=== PATIENT | female | born 1985 | race Caucasian/White ===

== ENCOUNTER 2020-08-28 15:28 | Outpatient (REF) | payer OTHER, SELFPAY ==
[2020-08-29 11:06] LABS: BV Int Neg Control Negative (Negative); BV Int Pos Control Positive (Positive)
[2020-09-02 16:43] LABS: HPV mRNA E6/E7 rflx Not Detected (Not Detected)
[2020-09-25 22:14] LABS: CT PCR NOT DETECTED (Not Detect.); NG PCR NOT DETECTED (Not Detect.)
== END 2020-08-28 15:29 | disposition home or self-care (01) ==
LOC: HO.LAB 15:28
PROVIDERS: Visit Provider Obstetrics & Gynecology
DX: Z01.419 Encounter for gynecological examination (general) (routine) without abnormal findings (principal)
CPT/HCPCS: 87480; 87491; 87510; 87591; 87624; 87625; 87660; 88141; 88142

== ENCOUNTER 2020-09-17 15:34 | Outpatient (REF) | payer OTHER, SELFPAY ==
--- NOTE | 2020-09-17 15:38 | US_ITS ---
EXAMINATION: US pelvic complete, US transvaginal CLINICAL INFORMATION: Pelvic and perineal pain. COMPARISON: Several prior pelvic ultrasounds. Most recent of 03/05/20. TECHNIQUE: Transabdominal and transvaginal imaging was performed. FINDINGS: Uterus: The uterus is anteverted and normal in size and appearance measuring 7.2 x 3.4 x 3.9 cm. Central endometrial complex measures 1.0 cm. Small nabothian cysts are present in the cervix. Right ovary: Normal size and appearance with normal follicles. The ovary measures 2.2 x 1.2 x 1.4 cm with a volume of 2 mL. Left ovary: There is a simple cyst measuring 2.0 cm in diameter which is different than the complex cyst seen on prior imaging. There are other small cysts which have a somewhat tubular configuration suggesting the possibility of mild hydrosalpinx. The left ovary measures 4.4 x 2.6 x 2.3 cm with a volume of 14 mL. There is no free fluid. US/US transvaginal IMPRESSION: 1. 2.0 cm simple cyst left ovary. Other small cystic collections suggesting mild hydrosalpinx. 2. Normal right ovary and uterus.
--- NOTE | 2020-09-17 15:38 | US_ITS ---
EXAMINATION: US pelvic complete, US transvaginal CLINICAL INFORMATION: Pelvic and perineal pain. COMPARISON: Several prior pelvic ultrasounds. Most recent of 03/05/20. TECHNIQUE: Transabdominal and transvaginal imaging was performed. FINDINGS: Uterus: The uterus is anteverted and normal in size and appearance measuring 7.2 x 3.4 x 3.9 cm. Central endometrial complex measures 1.0 cm. Small nabothian cysts are present in the cervix. Right ovary: Normal size and appearance with normal follicles. The ovary measures 2.2 x 1.2 x 1.4 cm with a volume of 2 mL. Left ovary: There is a simple cyst measuring 2.0 cm in diameter which is different than the complex cyst seen on prior imaging. There are other small cysts which have a somewhat tubular configuration suggesting the possibility of mild hydrosalpinx. The left ovary measures 4.4 x 2.6 x 2.3 cm with a volume of 14 mL. There is no free fluid. US/US pelvic complete IMPRESSION: 1. 2.0 cm simple cyst left ovary. Other small cystic collections suggesting mild hydrosalpinx. 2. Normal right ovary and uterus.
== END 2020-09-17 15:35 | disposition home or self-care (01) ==
LOC: HO.US 15:34
PROVIDERS: Visit Provider Obstetrics & Gynecology
DX: R10.2 Pelvic and perineal pain (principal)
CPT/HCPCS: 76830; 76856

== ENCOUNTER 2021-01-01 10:29 | Outpatient (REF) | payer OTHER, SELFPAY ==
[2021-01-06 18:32] LABS: HPV mRNA E6/E7 rflx Not Detected (Not Detected)
== END 2021-01-01 10:30 | disposition home or self-care (01) ==
LOC: HO.LAB 10:29
PROVIDERS: Visit Provider Obstetrics & Gynecology
DX: Z12.4 Encounter for screening for malignant neoplasm of cervix (principal); Z11.51 Encounter for screening for human papillomavirus (HPV); R87.615 Unsatisfactory cytologic smear of cervix
CPT/HCPCS: 87624; 88141; 88142; 99212

== ENCOUNTER 2024-01-17 13:35 | Outpatient (AMB) | payer OTHER, SELFPAY ==
--- NOTE | 2024-01-17 13:47 | MHC.PC.OV ---
Vital Signs 01/17/24 13:48 Height 5 ft 6 in Weight 209 lb 0.2 oz BMI 33.7 BP 140/86 H Blood Pressure Location Lt brachial Position Sitting Pulse 102 H Pulse Source Pulse Oximeter Pulse Oximetry (%) 97 Oxygen Delivery Method Room Air Intake Visit Reasons: Annual PE Intake Note: Patient is here today for a physical. 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: No Allergies hazelnut Allergy (Severe, Verified 01/17/24 14:52) SWELLING watermelon Allergy (Intermediate, Verified 01/17/24 14:52) itchy throat, hoarseness FRUIT, SKINS Allergy (Intermediate, Uncoded 01/17/24 14:52) ITCHY THROAT salsa dip Adverse Reaction (Severe, Uncoded 01/17/24 14:52) mouth swelling Medication List - Last Reconciled 01/17/24 by Bhavik Le MD fexofenadine 180 mg PO DAILY PRN 90 days fluticasone propionate 50 mcg/actuation 1 spray intranasal DAILY 90 days gabapentin 300 mg PO TID 30 days tizanidine 4 mg PO TID PRN 30 days Tobacco use date assessed: 01/17/24 Dental Screening Dental Screen Date: 01/17/24 Did you have a dental visit in the last 12 months?: No Did you have a dental problem in the last 6 months where you did not have access to dental care?: No Was dental information given to patient?: Patient has dentist HPI Annual PE HPI Details Patient comes in today for her annual physical examination States that she continues to experience increased pain over her lower back and feels that her low back pain has been getting worse lately States that her current medications are not helping much She has also been experiencing increased pain over her left shoulder, left hip and left knee lately She denies any recent injury or trauma to her left side She denies any headaches or dizziness Denies any chest pains, no shortness of breath No nausea / vomiting, no abdominal pain No change in bowel habits noted She denies any acute urinary symptoms She will also need to have her annual mammogram and annual histology aide exam and pap smear updated [facility] Medical History Allergic rhinitis Anxiety Depression Elevated LFTs Lumbar degenerative disc disease Obesity (BMI 30-39.9) Paresthesia Primary insomnia Pure hypercholesterolemia Surgical History History of arthroscopy of left shoulder History of ectopic Family History Father No problems noted. Mother No problems noted. Maternal Grandmother Stroke Diabetes Hypertension Paternal Aunt Liver problem Alcoholism Family/Other Substance use disorder Social History Housing: Apartment Alcohol intake: never Patient Tobacco Use Status: Former Tobacco user Tobacco use type: Cigarette e-Cigarette/Vaping Use: Never Used Second Hand Smoke Exposure: No service: No Current occupational status: unemployed Current occupational exposures/hazards: No Sexual orientation: Straight/Heterosexual Gender identity: Female Cognitive needs: No Hearing needs: No Vision needs: No Female Reproductive History Menstrual Age of Menarche: 9 Questionnaire PHQ-9 Over the last 2 weeks, how often have you been bothered by any of the following problems? 1. Little interest or pleasure in doing things: several days 2. Feeling down, depressed, or hopeless: several days (bodily pain ) 3. Trouble falling or staying asleep, or sleeping too much: several days 4. Feeling tired or having little energy: nearly every day (due to bodily pain ) 5. Poor appetite or overeating: several days 6. Feeling bad about yourself - or that you are a failure or have let yourself or your family down: several days 7. Trouble concentrating on things, such as reading the newspaper or watching television: several days 8. Moving or speaking so slowly that other people could have noticed. Or the opposite - being so fidgety or restless that you have been moving around a lot more than usual: several days 9. Thoughts that you would be better off or of hurting yourself in some way: not at all Total score: 10 Depression Screening Interpretation: Positive Depression Screening Follow-up: Existing condition and Declines treatment Depression Screening Done: Yes 72288 - PHQ-9 Billing: Yes Source: Developed by Drs. Serafin Garcia, Lary Francois, Babak Stevens and colleagues, with an educational radha from [employer]. Thrive Questionnaire Date Thrive assessed: 01/17/24 I am a: Patient What is your living situation today?: I have a steady place to live Within the past 12 months, did the food you bought not last and you didn't have the money to get more?: Never true Within the past 12 months, did you worry whether your food would run out before you got money to buy more?: Never true Do you have trouble paying for medicines?: No Do you have trouble getting transportation to medical appointments?: No Do you have trouble paying your heating and electricity bill?: No Do you have trouble taking care of your child, family member or friend?: No Do you have trouble with day-to-day activities such as bathing, preparing meals, shopping, managing finances, etc.?: No Are you currently unemployed and looking for a job?: No Are you interested in more education?: No Please select the resources that you would like help with: None Currently or been in a relationship where the following occur: no concerns reported THRIVE Score: 0 AUDIT C Alcohol Use Questionnaire (AUDIT-C) 1. How often do you have a drink containing alcohol?: Monthly or less 2. How many drinks containing alcohol do you have on a typical day when you are drinking?: 1 or 2 3. How often do you have six or more drinks on one occasion?: Never Total Score: 1 Score Reviewed/Action Taken: Yes VIKKI-7 AMB Questionnaire VIKKI-7 Date VIKKI - 7 assessed: 01/17/24 Feeling nervous, anxious, or on edge: 1 = Several days Not being able to stop or control worryin = Several days Worrying too much about different things: 1 = Several days Trouble relaxin = Several days Being so restless that it is hard to sit still: 1 = Several days Becoming easily annoyed or irritable: 1 = Several days Feeling afraid as if something awful might happen: 0 = Not at all Total VIKKI-7 score (0-4 normal; 5-9 mild; 10-14 moderate; 15-21 severe): 6 Source: Developed by Drs. Serafin Garcia, Lary Francois, Babak Stevens and colleagues, with an educational radha from [employer]. VIKKI-7 Assessment Billing VIKKI-7 Assessment Tool: VIKKI-7 Assessment 36385 Review of Systems Const Denies chills, Denies fatigue, Denies fever(s), Denies headache(s) and Denies malaise Eyes Denies blurry vision, Denies change in vision, Denies irritation and Denies itchy eyes ENT Denies dysphagia, Denies dizziness, Denies otalgia, Denies headache(s), Denies nasal congestion, Denies neck pain, Denies odynophagia, Denies sinus pain and Denies sore throat Card Denies chest pain, Denies rapid heart rate, Denies irregular heart rhythm, Denies palpitations and Denies dyspnea Resp Denies chest congestion, Denies cough, Denies dyspnea and Denies wheezing GI Denies abdominal pain, Denies bloating, Denies constipation, Denies dysphagia, Denies heartburn, Denies diarrhea, Denies nausea, Denies odynophagia and Denies vomiting Denies hematuria, Denies urinary frequency, Denies dysuria, Denies urinary incontinence and Denies urinary urgency Musc Reports back pain (over her lower back - chronic, but pain is increasing lately), Reports arthralgias (involving the left shoulder, left hip and left knee), Denies joint swelling, Denies muscle weakness and Denies neck pain Skin/Breast Denies breast pain, Denies breast mass, Denies change in pigmentation, Denies lesions, Denies rash and Denies unusual bruising Neuro Denies dizziness, Denies headache(s) and Denies paresthesias Psych Denies anxiety and Denies depression Endo Denies fatigue and Denies palpitations Nakul/Lymph Denies easy bruising Aller/Immun Denies itchy eyes and Denies wheezing Physical exam (Primary Care) Vital Signs: Last Vital Signs Pulse 102 H 01/17/24 13:48 BP 140/86 H 01/17/24 13:48 Pulse Ox 97 01/17/24 13:48 Oxygen Delivery Method Room Air 01/17/24 13:48 BMI result Body Mass Index 33.7 Tobacco/Smoking Status: Tobacco use Status Tobacco use date assessed 01/17/24 01/17/24 13:49 Patient Tobacco Use Status Former Tobacco user 01/17/24 13:49 Tobacco use type Cigarette 01/17/24 13:49 e-Cigarette/Vaping Use Never Used 01/17/24 13:49 PHQ-9: PHQ-9 Score PHQ-9: Total score 10 01/17/24 14:38 Depression Screening Interpretation: Positive Depression Screening Follow-up: Existing condition and Declines treatment Thrive Assessment: Date of Thrive Assessment Date Thrive assessed 01/17/24 01/17/24 13:49 Currently or been in a relationship where the following occur: no concerns reported Const General: no acute distress, alert and awake Orientation/consciousness: patient oriented x3 [facility] Head: Yes normocephalic and Yes atraumatic Ears: external ears normal, TM's normal bilaterally and EAC's normal General nose exam: No nasal discharge present Face and sinus: Yes normal facial exam and Yes sinuses nontender Teeth and gingiva: dentition normal Throat: Yes posterior oropharynx normal and Yes tonsils normal (no TP congestion) Eyes Eyelids: Yes eyelids normal Conjunctivae: conjunctivae normal Pupils: Equal, round and reactive pupils present EOM: EOMs intact bilaterally Neck Neck: Yes no lymphadenopathy and Yes supple Thyroid: Thyroid normal Resp Auscultation: clear to auscultation bilaterally, no rales and no wheezes Cardio Rate: regular rate Rhythm: regular rhythm Heart sounds: no murmurs GI Palpation (GI): Soft to palpation, nontender and No hepatosplenomegaly present Auscultation: normal bowel sounds General: Yes no CVA tenderness Back/Spine/Pelvis Back: no CVA tenderness Thoracic/Lumbar Spine: lumbar spinal tenderness Skin Lesions: no lesions Rashes: no rashes Neuro General: patient oriented x3, moves all extremities, no focal motor deficits and CN's II-XI intact bilaterally Cranial nerves: Yes Equal, round and reactive pupils present Cognition (Neuro): normal cognition Gait exam (Neuro): Normal gait present Extrem General: Yes no clubbing, cyanosis or edema Left upper extremity: shoulder/upper arm Details: tenderness Location: of the A-C joint Left lower extremity: hip/thigh Details: tenderness Location: of the hip and knee Details: tenderness Location: of the pre-patellar area and of the infrapatellar area; no swelling Assessment and Plan Assessment & Plan (1) Annual physical exam: Code(s): Z00.00 - Encounter for general adult medical examination without abnormal findings Plan: Check labs She will need to have her annual mammogram and annual gynecologic exam and Pap smear updated (2) Lumbar degenerative disc disease: Code(s): M51.36 - Other intervertebral disc degeneration, lumbar region Plan: Reinforced activity and weight lifting restrictions Lumbar spine MRI done back on 07/13/2016 revealed (+) left foraminal disc protrusion contacting the exiting left L3 nerve root at L3 to L4 and (+) right foraminal disc protrusion contacting the exiting right nerve root at L4 to L5. There is also a central to left subarticular disc extrusion at L5-S1 She was going to pain management in the past but patient has not been back to see them in a while Will refer her back to pain management, especially with her recent increasing low back pain Will try sending her for repeat MRI of the lumbar spine for further evaluation of her recent worsening of her back symptoms Continue Tizanidine 4 mg TID PRN and will try increasing her Gabapentin 300 mg to TID dosing (3) Left lumbosacral radiculopathy: Code(s): M54.17 - Radiculopathy, lumbosacral region Plan: Will try to get her to repeat an MRI of the lumbar spine for further evaluation (4) Left shoulder pain: Code(s): M25.512 - Pain in left shoulder Qualifiers: Chronicity: unspecified Qualified Code(s): M25.512 - Pain in left shoulder Plan: Will send her for x-rays of the right shoulder for further evaluation Per request, will also refer her to physical therapy for her shoulder pain Will also refer her to Orthopedics for further evaluation and management of her left shoulder pain as well as her left hip and left knee pain (5) Left hip pain: Code(s): M25.552 - Pain in left hip Plan: Will send her for x-rays of the left hip for further evaluation (6) Left knee pain: Code(s): M25.562 - Pain in left knee Qualifiers: Chronicity: unspecified Qualified Code(s): M25.562 - Pain in left knee Plan: Will also send her for left knee x-rays for further evaluation (7) Pure hypercholesterolemia: Code(s): E78.00 - Pure hypercholesterolemia, unspecified Plan: Reinforced low cholesterol diet Will recheck her fasting lipids and labs ASHELY for follow up (8) Elevated LFTs: Code(s): R79.89 - Other specified abnormal findings of blood chemistry Plan: Most likely due tp hepatosteatosis (fatty liver) and should improve with diet and weight loss Will recheck her LFTs for follow up (9) Allergic rhinitis: Code(s): J30.9 - Allergic rhinitis, unspecified Qualifiers: Allergic rhinitis trigger: unspecified Allergic rhinitis seasonality: unspecified Qualified Code(s): J30.9 - Allergic rhinitis, unspecified Plan: Continue Fexofenadine 180 mg QD PRN and Fluticasone 50 mcg nasal spray QD PRN (10) Primary insomnia: Code(s): F51.01 - Primary insomnia Plan: Sleep hygiene reinforced Continue Hydroxyzine 25 mg Q HS PRN (11) Anxiety: Code(s): F41.9 - Anxiety disorder, unspecified Plan: She was previously on Buspirone 15 mg BID and Sertraline 50 mg QD but unclear at this time if she is still on any maintenance medication for her mood disorder as she has not been back since August 2022 Follow up with psychiatry as scheduled (12) Depression: Code(s): F32.9 - Major depressive disorder, single episode, unspecified Qualifiers: Depression Type: major depressive disorder Major depression recurrence: recurrent Active/Remission status: currently active Major depression episode severity: unspecified Qualified Code(s): F33.9 - Major depressive disorder, recurrent, unspecified Plan: Follow up with psychiatry as scheduled - patient goes to [facility] (13) Obesity (BMI 30-39.9): Code(s): E66.9 - Obesity, unspecified Plan: Reinforced doet/exercise as tolerated/lose weight (14) Breast cancer screening by mammogram: Code(s): Z12.31 - Encounter for screening mammogram for malignant neoplasm of breast Plan: Will send her for her annual mammogram - she has not had it done in a few years (15) Cervical cancer screening: Code(s): Z12.4 - Encounter for screening for malignant neoplasm of cervix Plan: Patient states that she has also not been to see gynecology in a few years Will refer her to Gynecology for her annual pap smear and gynecology exam Plan Follow up in 3 months Orders: Orders MM tomosynthesis screening BI 01/17/24 Z12.31 - Encounter for screening mammogram for malignant neoplasm of breast XR hip LT min 2V 01/17/24 M25.552 - Pain in left hip Complete Blood Count Auto Diff 01/17/24 D64.9 - Anemia, unspecified, Z00.00 - Encounter for general adult medical examination without abnormal findings Comprehensive Dra[place]. Panel Fast 01/17/24 E78.00 - Pure hypercholesterolemia, unspecified, Z00.00 - Encounter for general adult medical examination without abnormal findings Lipid Panel 01/17/24 E78.00 - Pure hypercholesterolemia, unspecified, Z00.00 - Encounter for general adult medical examination without abnormal findings TSH reflex Free T4 01/17/24 E78.00 - Pure hypercholesterolemia, unspecified, Z00.00 - Encounter for general adult medical examination without abnormal findings UA CC w/rflx Micro + Cult 01/17/24 R30.0 - Dysuria, Z00.00 - Encounter for general adult medical examination without abnormal findings Hemoglobin A1c 01/17/24 Z00.00 - Encounter for general adult medical examination without abnormal findings, R73.9 - Hyperglycemia, unspecified XR shoulder LT min 2V 01/17/24 M25.512 - Pain in left shoulder XR knee LT 4V 01/17/24 M25.562 - Pain in left knee Vitamin D 25-OH Total 01/17/24 E55.9 - Vitamin D deficiency, unspecified, Z00.00 - Encounter for general adult medical examination without abnormal findings MR lumbar spine wo con 01/17/24 M54.17 - Radiculopathy, lumbosacral region Referrals Physical Medicine and Rehabilitation Referral M25.512 - Pain in left shoulder CHILD NURSE Referral Z12.4 - Encounter for screening for malignant neoplasm of cervix Orthopedics Referral M25.512 - Pain in left shoulder Pain Management Referral M51.36 - Other intervertebral disc degeneration, lumbar region Medications: Changed From tizanidine 4 mg PO TID 90 days PRN 270 tabs 3RF low back pain M51.36 - Other intervertebral disc degeneration, lumbar region To tizanidine 4 mg PO TID PRN 90 tabs 3RF low back pain 30 days M51.36 - Other intervertebral disc degeneration, lumbar region From gabapentin 300 mg PO BID 30 days 60 caps 2RF To gabapentin 300 mg PO TID 90 caps 2RF 30 days Coding Level of Care Code Est Pt Prev Care 40-64y(18618) Diagnoses Annual physical exam Z00.00 Lumbar degenerative disc disease M51.36 Left lumbosacral radiculopathy M54.17 Left shoulder pain, unspecified chronicity M25.512 Chronicity: unspecified Left hip pain M25.552 Left knee pain, unspecified chronicity M25.562 Chronicity: unspecified Pure hypercholesterolemia E78.00 Elevated LFTs R79.89 Allergic rhinitis, unspecified seasonality, unspecified trigger J30.9 Allergic rhinitis trigger: unspecified Allergic rhinitis seasonality: unspecified Primary insomnia F51.01 Anxiety F41.9 Episode of recurrent major depressive disorder, unspecified depression episode severity F33.9 Depression Type: major depressive disorder Major depression recurrence: recurrent Active/Remission status: currently active Major depression episode severity: unspecified Obesity (BMI 30-39.9) E66.9 Breast cancer screening by mammogram Z12.31 Cervical cancer screening Z12.4 Additional Codes VIKKI-7 Assessment Billing - VIKKI-7 Assessment Tool: VIKKI-7 Assessment [id number] ([id number])
[2024-01-17 13:48] VITALS: BP 140/86; PULSE 102; O2SAT 97; BMI 33.7
== END 2024-01-17 14:51 | disposition home or self-care (01) ==
PROVIDERS: PCP Internal Medicine; Visit Provider Internal Medicine
DX: Z00.00 Encounter for general adult medical examination without abnormal findings (principal); M51.36 Other intervertebral disc degeneration, lumbar region; M54.17 Radiculopathy, lumbosacral region; F33.9 Major depressive disorder, recurrent, unspecified; M25.512 Pain in left shoulder; M25.552 Pain in left hip; M25.562 Pain in left knee; E78.00 Pure hypercholesterolemia, unspecified; R79.89 Other specified abnormal findings of blood chemistry; J30.9 Allergic rhinitis, unspecified; F51.01 Primary insomnia; F41.9 Anxiety disorder, unspecified
CPT/HCPCS: 99396

== ENCOUNTER 2024-04-05 13:43 | Outpatient (REF) | payer OTHER, SELFPAY ==
--- NOTE | ~2024-04-05 | MM_ITS ---
EXAMINATION: MM SCREENING DIGITAL BREAST TOMOSYNTHESIS, BILATERAL CLINICAL INFORMATION: Screening. Asymptomatic. COMPARISON: Mammography: This a baseline mammogram. TECHNIQUE: Digital breast tomosynthesis is performed in both the craniocaudal and mediolateral oblique views along with computer-aided detection (CAD). Synthesized 2D images are generated from the tomosynthesis. FINDINGS: There are scattered areas of fibroglandular density (ACR BI-RADS breast composition Category b). There are no significant masses, abnormal calcifications, or other abnormalities. MM/MM tomosynthesis screening BI IMPRESSION: No mammographic evidence of malignancy. ASSESSMENT: BI-RADS BI-RADS 1 - Negative RECOMMENDATION: Routine annual mammography screening. 1 year F/U This examination should not preclude the clinical evaluation of a suspicious palpable abnormality. This patient's information was entered into a reminder system with a target due date for their next mammogram.
== END 2024-04-05 13:44 | disposition home or self-care (01) ==
LOC: HO.MAMMO 13:43
PROVIDERS: PCP Internal Medicine; Visit Provider Internal Medicine
DX: Z12.31 Encounter for screening mammogram for malignant neoplasm of breast (principal)
CPT/HCPCS: 77063; 77067

== ENCOUNTER → 2024-04-05 14:15 | Outpatient (BNV) | payer OTHER, SELFPAY | PROVIDERS: PCP Internal Medicine; Visit Provider Radiology Diagnostic Radiology | DX: Z12.31 Encounter for screening mammogram for malignant neoplasm of breast (principal) | CPT/HCPCS: 77063; 77067 ==

== ENCOUNTER → 2024-05-27 08:31 | Outpatient (BNV) | payer OTHER, SELFPAY | PROVIDERS: PCP Internal Medicine; Visit Provider Radiology Diagnostic Radiology | DX: M54.17 Radiculopathy, lumbosacral region (principal) | CPT/HCPCS: 72148 ==

== ENCOUNTER 2024-05-27 08:35 | Outpatient (REF) | payer OTHER, SELFPAY ==
--- NOTE | ~2024-05-27 | MR_ITS ---
EXAMINATION: MR LUMBAR SPINE WITHOUT CONTRAST CLINICAL INFORMATION: Low back pain radiating to left leg with tingling and burning in left foot. COMPARISON: MR lumbar spine 06/14/2019. TECHNIQUE: Multiplanar multisequence MR imaging of the lumbar spine was done without IV contrast. Examination performed on a 1.5 Kellen Siemens magnet, utilizing standard sequences. Please note, due to [facility] contractual, systems, and staffing issues, an [facility] radiologist was not available for review and dictation of this case until 06/14/2024. FINDINGS: CORONAL ALIGNMENT: -Normal. SAGITTAL ALIGNMENT: -Mild straightening of the normal lordosis. -There is a 2 mm degenerative appearing retrolisthesis of L5 on S1. -Alignment is otherwise anatomic. LUMBOSACRAL JUNCTION: -Normal. There are 5 uan-pod-tjvupzl lumbar-type vertebral bodies. VERTEBRAL BODIES/BONE MARROW: -No compression deformities. No gross bone marrow edema or abnormal infiltrating bone marrow signal. DISCS: -Moderate loss of height and signal at T12-L1. -Mild loss of signal at L3-4 and L4-5. -Moderate loss of height and signal at L5-S1. SPINAL CANAL: -No abnormal developmental findings. CONUS MEDULLARIS: -Terminates at L1. Morphology and signal is normal. INTRADURAL NERVE ROOTS: -No abnormal clumping or nerve root mass. Normal distribution within the thecal sac. Axial Disc Space Images: T12-L1: Only seen on axial T1 and sagittal sequences. There is a small shallow central disc extrusion with superior migration to the lower one third of T12 ventral epidural space. This indents mildly upon the thecal sac but does not contact the conus or result in significant central canal narrowing. No significant subarticular recess are neural foraminal narrowing. No significant change. L1-L2: No disc pathology. There are mild hypertrophic degenerative facet changes bilaterally. No significant central canal or neural foraminal narrowing. No change. L2-L3: No disc pathology. Jeso-zr-wpxcvrza hypertrophic degenerative facet changes bilaterally. No significant central canal or neural foraminal narrowing. No change. L3-L4: Minimal shallow concentric disc bulge present extending into both foraminal zones. There is a superimposed stable shallow left foraminal disc extrusion with mild inferior migration (series 6, image 11). Moderate hypertrophic degenerative facet changes bilaterally with mild posterior ligamentous thickening/infolding. Combination of findings resulting in mild central canal narrowing, mild bilateral subarticular recess narrowing, and mild bilateral neural foraminal narrowing left greater than right. Minimal contact of the exiting left L3 nerve root without displacement or impingement. No change. L4-L5: There is a shallow diffuse concentric disc bulge with superimposed bilateral right greater than left foraminal disc extrusion, with the right demonstrating annular fissuring. There are moderate hypertrophic degenerative facet changes bilaterally, with mild posterior ligamentous thickening/infolding. Examination of findings is resulting in mild central canal stenosis, mild bilateral subarticular recess narrowing, and mild to moderate right greater than left neural foraminal narrowing. There is contact but no mass effect upon the exiting right L4 nerve root. No change. L5-S1: There is a broad-based extrusion of disc material, increased in size from the prior study. There is associated annular fissuring. This extends into the bilateral foraminal zones right greater than left. Moderate hypertrophic degenerative facet changes are present bilaterally, with posterior ligamentous thickening/infolding. Combination of findings is resulting in mild central canal stenosis, moderate left and mild right subarticular recess narrowing, with contact and mild posterior deviation of the traversing left S1 root. There is contact but no deviation of the traversing right S1 root. There is mild to moderate bilateral neural foraminal narrowing right greater than left, with bilateral contact and mild posterior deviation of both exiting L5 nerve roots. Findings have worsened within the left lateral recess and neural foramen bilaterally. IMAGED SI JOINTS: Mild degenerative arthritis bilaterally. PARAVERTEBRAL AND INCLUDED EXTRASPINAL SOFT TISSUES: Aorta is normal in caliber. Imaged kidneys appear normal. No retroperitoneal adenopathy. Paraspinous and paravertebral musculature is normal. MR/MR lumbar spine wo con IMPRESSION: -Mqoh-dy-eqtrzpel lumbar spondylosis, most significant at L5-S1, where there has been mild worsening of findings as described. -There are unchanged findings at L3-4 and L4-5. Refer to the body of the report for details. Electronically signed by: Grzegorz Jaime MD 06/14/2024 08:40 AM EDT
== END 2024-05-27 08:36 | disposition home or self-care (01) ==
LOC: HO.MRI 08:35
PROVIDERS: PCP Internal Medicine; Visit Provider Internal Medicine
DX: M54.17 Radiculopathy, lumbosacral region (principal)
CPT/HCPCS: 72148

== ENCOUNTER 2024-05-31 13:19 | Outpatient (REF) | payer OTHER, SELFPAY ==
[2024-06-04 04:37] LABS: CT PCR NOT DETECTED (Not Detect.); NG PCR NOT DETECTED (Not Detect.)
[2024-06-04 11:25] LABS: Bacterial Vaginosis PCR NEGATIVE (Negative); Candida Group PCR NOT DETECTED (Not Detect); Candida glab krusei PCR NOT DETECTED (Not Detect); Trichomonas vaginalis PCR NOT DETECTED (Not Detect)
[2024-06-06 09:19] LABS: HPV mRNA E6/E7 Not Detected (Not Detected)
== END 2024-05-31 13:20 | disposition home or self-care (01) ==
LOC: HO.LNP 13:19
PROVIDERS: PCP Internal Medicine; Visit Provider Advanced Practice Midwife
DX: Z01.419 Encounter for gynecological examination (general) (routine) without abnormal findings (principal); N89.8 Other specified noninflammatory disorders of vagina; Z20.2 Contact with and (suspected) exposure to infections with a predominantly sexual mode of transmission
CPT/HCPCS: 0352U; 87491; 87591; 87624; 88175

== ENCOUNTER 2024-05-31 13:19 | Outpatient (AMB) | payer OTHER, SELFPAY ==
--- NOTE | 2024-05-31 13:21 | MHC.OFFVIS ---
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 Doing well with no concerns. Shared her experience with infertility, has no plans to move forward at this time with IVF. She tries to eat healthy and stays active with exercise. Regular monthly menses. Currently is sexually active, with residential partner. She denies vaginal itching and irritation. Has an occasional fishy odor after intimacy. STI screening offered; she accepts. Denies family history of breast, ovarian or colon cancer. Last pap smear 2020 ASCUS, 2005 colpo-CINI. Mammogram: 2023. [facility] Medical History History of infertility Paresthesia Allergic rhinitis Obesity (BMI 30-39.9) Depression Primary insomnia Anxiety Elevated LFTs Pure hypercholesterolemia Lumbar degenerative disc disease Surgical History History of arthroscopy of left shoulder History of ectopic Family History Father No problems noted. Mother No problems noted. Maternal Grandmother Stroke Diabetes Hypertension Paternal Aunt Liver problem Alcoholism Family/Other Substance use disorder Social History Housing: Apartment Alcohol intake: current Alcohol intake frequency: holidays/special occasions only Patient Tobacco Use Status: Former Tobacco user Tobacco use type: Cigarette e-Cigarette/Vaping Use: Never Used Second Hand Smoke Exposure: No service: No Current occupational status: unemployed Current occupational exposures/hazards: No Sexual orientation: Straight/Heterosexual Gender identity: Female Cognitive needs: No Hearing needs: No Vision needs: No Female Reproductive History Menstrual Age of Menarche: 9 Duration of menses: 3-5 days Date of last menstrual period: 05/22/24 control method: none Total pregnancies: 1 Number of Living Children: 0 Ectopics: 1 Date of last pap smear: 01/01/21 ([place]) History of abnormal pap smear: Yes (10/23 colpo cin1) Date of Mammogram: 04/05/24 (Birad 1) Review of Systems Const All systems reviewed & are unremarkable except as noted in HPI and below Reports as per HPI Eyes Reports no additional complaints ENT Reports no additional complaints Card Reports no additional complaints Resp Reports no additional complaints GI Reports as per HPI and Reports no additional complaints Reports as per HPI Musc Reports no additional complaints Skin/Breast Reports as per HPI Neuro Reports no additional complaints Psych Reports no additional complaints Endo Reports no additional complaints Nakul/Lymph Reports no additional complaints Aller/Immun Reports no additional complaints Physical Exam Const General: cooperative, healthy appearing, no acute distress, well developed and alert Orientation/consciousness: patient oriented x3 HEENT Head: Yes normal to inspection Eyes General: appearance normal, both eyes and all related structures Neck Neck: Yes normal visual inspection Thyroid: Thyroid normal Chest Chest palpation & inspection: normal inspection of the chest and other (no puckering, dimpling, peau de orange, retraction, discharge, masses) Breast/axilla inspection: normal inspection of the breasts Breast/axilla palpation: normal palpation of the breasts Resp Effort & Inspection: normal respiratory effort GI Inspection: Yes normal to inspection Palpation (GI): Soft to palpation Rectal Exam - Female: deferred General: Yes bladder normal to palpation External Female Exam: normal external appearance and normal appearance of the urethra Speculum Exam - Vagina: normal appearance of the vagina, normal palpation and normal vaginal discharge Speculum Exam - Cervix: normal appearance of the cervix, normal palpation and Other cervical findings present (Bled with Pap) Bimanual exam- vagina & uterus: normal bimanual exam, normal palpation, uterine size normal, bladder normal to palpation, normal palpation and non-tender Bimanual Exam- Adnexa, other: no masses Skin General skin exam: no rashes or lesions noted Rashes: no rashes Neuro General: patient oriented x3 Cognition (Neuro): normal cognition Extrem General: Yes normal to inspection Psych Attitude: cooperative Thought process: Normal thought process present Assessment & Plan Assessment & Plan (1) Encounter for well woman exam with routine gynecological exam: Code(s): Z01.419 - Encounter for gynecological examination (general) (routine) without abnormal findings Category: Medical Plan Discussed: Current recommendations for pap smears per ASCCP guidelines. Pap obtained. Await results for BV, and GC and chlamydia. Discussed vaginal dhara, and not necessarily need to treat BV unless there symptoms. Breast awareness and periodic breast exams. Maintain a healthy lifestyle including a well balanced diet and routine exercise. Mammogram yearly. Colonoscopy >45, or at risk sooner. Patient verbalizes understanding and agrees to the plan of care. She was given opportunity to ask questions and all questions were answered to the best of my ability. 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 This note is constructed using voice recognition software. While every effort has been made to ensure accuracy, [employer] errors may have been included. Orders: Orders CT NG by PCR Today N89.8 - Other specified noninflammatory disorders of vagina, Z20.2 - Contact with and (suspected) exposure to infections with a predominantly sexual mode of transmission PAP + HPV E6/E7 rfx 18/45 Today Z01.419 - Encounter for gynecological examination (general) (routine) without abnormal findings Bacterial Vaginosis Panel Today N89.8 - Other specified noninflammatory disorders of vagina, Z20.2 - Contact with and (suspected) exposure to infections with a predominantly sexual mode of transmission Coding Level of Care Code New Pt Prev Care 18-39yr([id number] Diagnoses Encounter for well woman exam with routine gynecological exam Z01.419
[2024-05-31 13:22] VITALS: BP 104/66; BMI 35.8
== END 2024-05-31 14:12 | disposition home or self-care (01) ==
PROVIDERS: PCP Internal Medicine; Visit Provider Advanced Practice Midwife
DX: Z01.419 Encounter for gynecological examination (general) (routine) without abnormal findings (principal)
CPT/HCPCS: 99386

== ENCOUNTER 2024-05-31 14:07 | Outpatient (REF) | payer OTHER, SELFPAY | END 2024-05-31 14:08 | disposition home or self-care (01) | LOC: HO.LAB 14:07 | PROVIDERS: Visit Provider Advanced Practice Midwife | DX: Z13.89 Encounter for screening for other disorder (principal) ==

== ENCOUNTER 2025-01-07 07:15 | Emergency (ER) | payer OTHER, SELFPAY ==
--- NOTE | ~2025-01-07 | XR_ITS ---
EXAMINATION: XR CHEST CLINICAL INFORMATION: cough COMPARISON: None available. TECHNIQUE: 2 views of the chest were obtained. FINDINGS: The cardiac, hilar, and mediastinal contours are normal. The lungs are clear bilaterally. There is no pneumothorax or pleural effusion. There is no focal osseous or soft tissue abnormality. XR/XR chest 2V IMPRESSION: Normal chest. Electronically signed by: Grzegorz Jaime MD 01/07/2025 08:30 AM EDT
[2025-01-07 07:28] VITALS: BP 140/79; PULSE 89; RESP 16; TEMP 36.8; O2SAT 100; BMI 34.1
--- NOTE | 2025-01-07 07:47 | ED_ITS ---
HPI - URI/Sore Throat General Chief Complaint: Upper Respiratory Symptoms Stated Complaint: Congestion, fever Time Seen by Provider: 01/07/25 07:36 Source: patient Mode of arrival: ambulatory Limitations: no limitations History of Present Illness HPI Narrative: This is 39 years old female presented to the emergency department complaining of cough congestion generalized malaise for about a week. Denies any fever chills vomiting. MD elicited complaint: fever and cough Onset (ago): week(s) (1) Consistency: constant Severity: moderate Description of mucous: clear Exacerbating factors: nothing Relieving factors: nothing Context: sick contacts (significative other) Related Data Previous Rx's ?Medication ?Instructions ?Recorded fexofenadine 180 mg tablet 180 mg PO DAILY PRN allergy 01/17/23 symptoms 90 days #90 tabs gabapentin 300 mg capsule 300 mg PO TID 30 days #90 caps 01/17/24 tizanidine 4 mg tablet 4 mg PO TID PRN low back pain 30 12/01/24 days #90 tabs fluticasone propionate 50 1 spray intranasal DAILY 90 days 12/13/24 mcg/actuation nasal #15.8 mL spray,suspension benzonatate 100 mg capsule 100 mg PO Q6H PRN cough #20 caps 01/07/25 ibuprofen 800 mg tablet 800 mg PO Q8H PRN fever #20 tabs 01/07/25 Allergies Allergy/AdvReac Type Severity Reaction Status Date / Time hazelnut Allergy Severe SWELLING Verified 01/07/25 07:32 watermelon Allergy Intermediate itchy Verified 01/07/25 07:32 throat, hoarseness FRUIT, SKINS Allergy Intermediate ITCHY Uncoded 01/17/24 14:52 THROAT salsa dip AdvReac Severe mouth Uncoded 01/17/24 14:52 swelling Review of Systems ENT: Reports system reviewed and no additional complaints, except as documented Respiratory: Respiratory: Reports chest congestion and Reports cough PMFSH Past Medical History PMFSH Narrative: Denies any major medical problems nonsmoker Medical History History of infertility Paresthesia Allergic rhinitis Obesity (BMI 30-39.9) Depression Primary insomnia Anxiety Elevated LFTs Pure hypercholesterolemia Lumbar degenerative disc disease Surgical History History of arthroscopy of left shoulder History of ectopic Family History Family History Father No problems noted. Mother No problems noted. Maternal Grandmother Stroke Diabetes Hypertension Paternal Aunt Liver problem Alcoholism Family/Other Substance use disorder Social History Social History Housing: Apartment Alcohol intake: current Alcohol intake frequency: holidays/special occasions only Patient Tobacco Use Status: Former Tobacco user Tobacco use type: Cigarette e-Cigarette/Vaping Use: Never Used Second Hand Smoke Exposure: No Advance Directives: No Advance Directives Information Provided: No service: No Current occupational status: unemployed Current occupational exposures/hazards: No Sexual orientation: Straight/Heterosexual Gender identity: Female Cognitive needs: No Hearing needs: No Vision needs: No Physical Exam Vital Signs: Vital Signs: Last Vital Signs Temp 98.2 F 01/07/25 07:28 Pulse 89 01/07/25 07:28 Resp 16 01/07/25 07:28 BP 140/79 H 01/07/25 07:28 Pulse Ox 100 01/07/25 07:28 O2 Del Method Room Air 01/07/25 07:28 BMI result Body Mass Index 34.1 Not acute distress looks well Const: General: cooperative Orientation/consciousness: patient oriented x3 Limitations: no limitations HEENT: Head: Yes normal to inspection Face and sinus: Yes normal facial exam Mouth: Normal oral and palatal mucosa present Neck: Neck: Yes normal visual inspection Resp: Effort & Inspection: normal respiratory effort Auscultation: rhonchi Cardio: Jugular venous distension: no JVD Rate: regular rate Rhythm: regular rhythm GI: Inspection: Yes normal to inspection Palpation (GI): Soft to palpation, not firm and nontender : General: Yes no CVA tenderness Back/Spine/Pelvis: Back: no CVA tenderness Neuro: General: patient oriented x3 Course Reevaluation(s) Reevaluation #1: COVID test positive the patient is satting 100% on room air she can be discharged home Time: 09:53 Medical Decision Making Medical Decision Making [facility] Narrative: Patient is here with cough congestion URI symptoms we will obtain a chest x-ray viral panel Differential Diagnosis Differential Diagnoses: The differential diagnosis associated with the presentation includes Pneumonia/bronchitis Admission/Observation Consideration of admission/observation: Escalation of care including admission/observation considered Lab Data MDM Lab Attestation statement: I reviewed the patient's lab results. Labs: Lab Results 01/07/25 Range/Units 07:39 Influenza Type A (PCR) NEGATIVE (Negative) Influenza Type B (PCR) NEGATIVE (Negative) RSV RNA Qual (PCR) NEGATIVE (Negative) SARS-CoV-2 RNA (RT-PCR) POSITIVE A (Negative) Independent Interpretation I performed an independent interpretation of an: Plain X-Ray Interpretation: Not acute disease Radiology Impression Discussion of test interpretation with radiology: I have reviewed the r adiologist's reading. Radiologist Impression: Not acute disease Prescription Management I considered prescription management with: Pain Medication Discharge Plan Discharge Clinical Impression: COVID-19 Patient Disposition: Home, Self-Care Instructions: COVID-19 (Coronavirus Disease 2019) (ED) Additional Instructions: Follow-up with your primary care physician you test positive for COVID Prescriptions: New ibuprofen 800 mg tablet 800 mg PO Q8H PRN (Reason: fever) Qty: 20 0RF benzonatate 100 mg capsule 100 mg PO Q6H PRN (Reason: cough) Qty: 20 0RF No Action fexofenadine 180 mg tablet 180 mg PO DAILY PRN (Reason: allergy symptoms) 90 Days Qty: 90 1RF tizanidine 4 mg tablet 4 mg PO TID PRN (Reason: low back pain) 30 Days Qty: 90 0RF fluticasone propionate 50 mcg/actuation spray,suspension 1 spray intranasal DAILY 90 Days Qty: 15.8 3RF gabapentin 300 mg capsule 300 mg PO TID 30 Days Qty: 90 2RF Print Language: Citizen Of [place]
[2025-01-07 08:29] LABS: Influenza A PCR NEGATIVE (Negative); Influenza B PCR NEGATIVE (Negative); Resp Syncy Virus RNA Qual PCR NEGATIVE (Negative); SARS COV2 PCR INHOUSE POSITIVE (Negative)
--- NOTE | 2025-01-07 08:59 | PC.NURSE ---
Report received from VIVIANA Durham. This RN assumes care of the patient at this time.
[2025-01-07 10:19] VITALS: BP 140/79; PULSE 89; RESP 16; TEMP 36.8; O2SAT 100
== END 2025-01-07 10:19 | disposition home or self-care (01) ==
PROVIDERS: Emergency Provider Emergency Medicine; PCP Internal Medicine
DX: U07.1 COVID-19 (principal); R09.89 Other specified symptoms and signs involving the circulatory and respiratory systems; R50.9 Fever, unspecified; R05.9 Cough, unspecified; Z87.891 Personal history of nicotine dependence
CPT/HCPCS: 0241U; 71046; 99283

== ENCOUNTER → 2025-01-07 07:47 | Outpatient (BNV) | payer OTHER, SELFPAY | PROVIDERS: Emergency Provider Emergency Medicine; PCP Internal Medicine; Visit Provider Radiology Diagnostic Radiology | DX: R05.9 Cough, unspecified (principal) | CPT/HCPCS: 71046 ==

== ENCOUNTER 2025-01-17 12:54 | Outpatient (AMB) | payer OTHER, SELFPAY ==
[2025-01-17 12:57] VITALS: BP 118/76; PULSE 62; O2SAT 98; BMI 34.1
--- NOTE | 2025-01-17 12:57 | MHC.PC.OV ---
Vital Signs 01/17/25 12:57 Height 5 ft 6 in Weight 211 lb 5 oz BMI 34.1 BP 118/76 Blood Pressure Location Lt brachial Position Sitting Pulse 62 Pulse Source Pulse Oximeter Pulse Oximetry (%) 98 Oxygen Delivery Method Room Air Intake Visit Reasons: Annual Exam Assistant Operator Required: No Accompanied by: Self / Same As Patient Allergies hazelnut Allergy (Severe, Verified 01/19/25 01:05) SWELLING watermelon Allergy (Intermediate, Verified 01/19/25 01:05) itchy throat, hoarseness FRUIT, SKINS Allergy (Intermediate, Uncoded 01/19/25 01:05) ITCHY THROAT salsa dip Adverse Reaction (Severe, Uncoded 01/19/25 01:05) mouth swelling Medication List - Last Reconciled 01/19/25 by Bhavik Le MD benzonatate 100 mg PO Q6H PRN fluticasone propionate 50 mcg/actuation 1 spray intranasal DAILY 90 days gabapentin 300 mg PO TID 30 days ibuprofen 800 mg PO Q8H PRN sertraline 50 mg PO DAILY 90 days tizanidine 4 mg PO TID PRN 30 days Tobacco use date assessed: 01/17/25 Dental Screening Dental Screen Date: 01/17/25 Did you have a dental visit in the last 12 months?: No Did you have a dental problem in the last 6 months where you did not have access to dental care?: No Was dental information given to patient?: Patient has dentist HPI Annual Exam HPI Details Patient comes in today for her annual physical examination States that she tested positive for COVID about 10 days ago Relates that she was experiencing increased cough and congestion for a couple of weeks, which she initially thought were due to allergies but they progressively got worse and she also started experiencing recurrent diarrhea, which prompted her to go to the ER about 10 days ago and she subsequently tested positive for COVID As she was already outside the effective treatment window back then, was just prescribed some Rx for symptomatic Tx of her cough Patient states that her recent bout with diarrhea may have aggravated her hemorrhoids as she has noticed some blood in her stool at times lately Feels that her cough is now starting to settle down but states that her chest still feels somewhat congested although she denies any SOB She denies any fever or sore throat; denies any headaches or dizziness Denies any chest pains No nausea/vomiting, no abdominal pain States that her previous diarrhea has resolved completely and her bowels are back to normal She denies any acute urinary symptoms She continues to experience increased pain over her lower back (has chronic low back pain) States that she tried lifting weights and using a treadmill recently she wants to start losing some weight but finds that all of these activities cause her low back pain to feel worse and she wants to know what she can do to help her lose weight but at the same time not cause her back pain to feel worse She has also been feeling depressed lately and would like to know why we stopped prescribing her sertraline about a year ago and would like to know if there is something else she can take for her depression She had her annual mammogram done back in March 2024 She had her yearly gynecology exam done in May 2024 and has a follow-up exam and pap smear scheduled for May of this year (2024) [facility] Medical History History of infertility Paresthesia Allergic rhinitis Obesity (BMI 30-39.9) Depression Primary insomnia Anxiety Elevated LFTs Pure hypercholesterolemia Lumbar degenerative disc disease Surgical History History of arthroscopy of left shoulder History of ectopic Family History Father No problems noted. Mother No problems noted. Maternal Grandmother Stroke Diabetes Hypertension Paternal Aunt Liver problem Alcoholism Family/Other Substance use disorder Social History Housing: Apartment Alcohol intake: current Alcohol intake frequency: holidays/special occasions only Patient Tobacco Use Status: Former Tobacco user Tobacco use type: Cigarette e-Cigarette/Vaping Use: Never Used Second Hand Smoke Exposure: No service: No Current occupational status: unemployed Current occupational exposures/hazards: No Sexual orientation: Straight/Heterosexual Gender identity: Female Cognitive needs: No Hearing needs: No Vision needs: No Female Reproductive History Menstrual Age of Menarche: 9 Questionnaire PHQ-9 Over the last 2 weeks, how often have you been bothered by any of the following problems? 1. Little interest or pleasure in doing things: more than half the days 2. Feeling down, depressed, or hopeless: more than half the days 3. Trouble falling or staying asleep, or sleeping too much: nearly every day 4. Feeling tired or having little energy: nearly every day 5. Poor appetite or overeating: more than half the days 6. Feeling bad about yourself - or that you are a failure or have let yourself or your family down: several days 7. Trouble concentrating on things, such as reading the newspaper or watching television: more than half the days 8. Moving or speaking so slowly that other people could have noticed. Or the opposite - being so fidgety or restless that you have been moving around a lot more than usual: several days 9. Thoughts that you would be better off or of hurting yourself in some way: not at all Total score: 16 Depression Screening Interpretation: Positive Depression Screening Follow-up: Existing condition, New Medication prescribed and Community Mental Health Worker F/U Depression Screening Done: Yes 43579 - PHQ-9 Billing: Yes Source: Developed by Drs. Serafin Garcia, Lary Francois, Babak Stevens and colleagues, with an educational radha from [employer]. Thrive Questionnaire Date Thrive assessed: 01/17/25 I am a: Patient What is your living situation today?: I have a steady place to live Within the past 12 months, did the food you bought not last and you didn't have the money to get more?: Never true Within the past 12 months, did you worry whether your food would run out before you got money to buy more?: Never true Do you have trouble paying for medicines?: No Do you have trouble getting transportation to medical appointments?: No Do you have trouble paying your heating and electricity bill?: No Do you have trouble taking care of your child, family member or friend?: Yes Do you have trouble with day-to-day activities such as bathing, preparing meals, shopping, managing finances, etc.?: Yes Are you currently unemployed and looking for a job?: I choose not to answer this question Are you interested in more education?: No Please select the resources that you would like help with: None Currently or been in a relationship where the following occur: No concerns reported THRIVE Score: 0 AUDIT C Alcohol Use Questionnaire (AUDIT-C) 1. How often do you have a drink containing alcohol?: Never 3. How often do you have six or more drinks on one occasion?: Never Total Score: 0 Score Reviewed/Action Taken: Yes VIKKI-7 AMB Questionnaire VIKKI-7 Date VIKKI - 7 assessed: 01/17/25 Feeling nervous, anxious, or on edge: 2 = More than half the days Not being able to stop or control worryin = More than half the days Worrying too much about different things: 2 = More than half the days Trouble relaxin = Nearly every day Being so restless that it is hard to sit still: 2 = More than half the days Becoming easily annoyed or irritable: 1 = Several days Feeling afraid as if something awful might happen: 1 = Several days Total VIKKI-7 score (0-4 normal; 5-9 mild; 10-14 moderate; 15-21 severe): 13 Source: Developed by Drs. Serafin Garcia, Lary Francois, Babak Stevens and colleagues, with an educational radha from [employer]. Review of Systems Const Denies chills, Reports fatigue, Denies fever(s), Denies headache(s) and Denies malaise Eyes Denies blurry vision, Denies change in vision, Denies irritation and Denies itchy eyes ENT Denies dysphagia, Denies dizziness, Denies otalgia, Denies headache(s), Reports nasal congestion, Denies neck pain, Denies odynophagia, Denies sinus pain and Denies sore throat Card Denies chest pain, Denies rapid heart rate, Denies irregular heart rhythm, Denies palpitations and Denies dyspnea Resp Reports chest congestion (mild, at times), Reports cough (on and off), Denies pain with cough, Denies dyspnea and Denies wheezing GI Denies abdominal pain, Denies bloating, Denies constipation, Denies dysphagia, Denies heartburn, Denies diarrhea, Denies nausea, Denies odynophagia and Denies vomiting Denies hematuria, Denies urinary frequency, Denies dysuria, Denies urinary incontinence and Denies urinary urgency Musc Reports back pain (chronic), Denies arthralgias, Denies joint swelling, Denies muscle weakness and Denies neck pain Skin/Breast Denies breast pain, Denies breast mass, Denies change in pigmentation, Denies lesions, Denies rash and Denies unusual bruising Neuro Denies dizziness, Denies headache(s) and Denies paresthesias Psych Denies anxiety and Reports depression Endo Reports fatigue and Denies palpitations Nakul/Lymph Denies easy bruising Aller/Immun Denies itchy eyes and Denies wheezing Physical exam (Primary Care) Vital Signs: Last Vital Signs Pulse 62 01/17/25 12:57 BP 118/76 01/17/25 12:57 Pulse Ox 98 01/17/25 12:57 Oxygen Delivery Method Room Air 01/17/25 12:57 BMI result Body Mass Index 34.1 Tobacco/Smoking Status: Tobacco use Status Tobacco use date assessed 01/17/25 01/17/25 13:05 Patient Tobacco Use Status Former Tobacco user 01/17/25 13:05 Tobacco use type Cigarette 01/17/25 13:05 e-Cigarette/Vaping Use Never Used 01/17/25 13:05 PHQ-9: PHQ-9 Score PHQ-9: Total score 16 01/17/25 13:38 Depression Screening Interpretation: Positive Depression Screening Follow-up: Existing condition, New Medication prescribed and Community Mental Health Worker F/U Thrive Assessment: Date of Thrive Assessment Date Thrive assessed 01/17/25 01/17/25 13:05 Currently or been in a relationship where the following occur: No concerns reported Const General: no acute distress, alert and awake Orientation/consciousness: patient oriented x3 HENMT Head: Yes normocephalic and Yes atraumatic Ears: external ears normal, TM's normal bilaterally and EAC's normal General nose exam: No nasal discharge present Face and sinus: Yes normal facial exam and Yes sinuses nontender Teeth and gingiva: dentition normal Throat: Yes posterior oropharynx normal and Yes tonsils normal (no TP congestion) Eyes Eyelids: Yes eyelids normal Conjunctivae: conjunctivae normal Pupils: Equal, round and reactive pupils present EOM: EOMs intact bilaterally Neck Neck: Yes no lymphadenopathy and Yes supple Thyroid: Thyroid normal Resp Auscultation: no crackles, no rales, rhonchi (scattered) throughout and no wheezes Cardio Rate: regular rate Rhythm: regular rhythm Heart sounds: no murmurs GI Palpation (GI): Soft to palpation, nontender and No hepatosplenomegaly present Auscultation: normal bowel sounds General: Yes no CVA tenderness Back/Spine/Pelvis Back: no CVA tenderness Thoracic/Lumbar Spine: lumbar spinal tenderness Skin Lesions: no lesions Rashes: no rashes Neuro General: patient oriented x3, moves all extremities, no focal motor deficits and CN's II-XI intact bilaterally Cranial nerves: Yes Equal, round and reactive pupils present Cognition (Neuro): normal cognition Gait exam (Neuro): Normal gait present Extrem General: Yes no clubbing, cyanosis or edema Coding Level of Care Code Est Pt Prev Care 40-64y(57694) Diagnoses Annual physical exam Z00.00 Degeneration of intervertebral disc of lumbar region with discogenic back pain and lower extremity pain M51.362 Disc-related pain type: discogenic back pain and lower extremity pain Left lumbosacral radiculopathy M54.17 Pure hypercholesterolemia E78.00 Elevated LFTs R79.89 Allergic rhinitis, unspecified seasonality, unspecified trigger J30.9 Allergic rhinitis trigger: unspecified Allergic rhinitis seasonality: unspecified Primary insomnia F51.01 Anxiety F41.9 Episode of recurrent major depressive disorder, unspecified depression episode severity F33.9 Depression Type: major depressive disorder Major depression recurrence: recurrent Active/Remission status: currently active Major depression episode severity: unspecified Obesity (BMI 30-39.9) E66.9 Additional Codes PHQ-9 - 92997 - PHQ-9 Billing: Yes ([id number]) Assessment & Plan Assessment & Plan (1) Annual physical exam: Code(s): Z00.00 - Encounter for general adult medical examination without abnormal findings Category: Medical Plan: Check labs ASHELY to complete her annual physical She had her annual mammogram done back in March 2024 She had her yearly gynecology exam done in May 2024 and has a follow-up exam and pap smear scheduled for May of this year (2024) (2) Lumbar degenerative disc disease: Code(s): M51.36 - Other intervertebral disc degeneration, lumbar region Category: Medical Qualifiers: Disc-related pain type: discogenic back pain and lower extremity pain Qualified Code(s): M51.362 - Other intervertebral disc degeneration, lumbar region with discogenic back pain and lower extremity pain Plan: Reinforced activity and weight lifting restrictions Lumbar spine MRI done back on 07/13/2016 revealed (+) left foraminal disc protrusion contacting the exiting left L3 nerve root at L3 to L4 and (+) right foraminal disc protrusion contacting the exiting right nerve root at L4 to L5. There is also a central to left subarticular disc extrusion at L5-S1 Repeat lumbar spine MRI done last year on 05/27/2024 revealed findings of [id number] lumbar spondylosis, most significant at L5-S1, where there has been mild worsening of findings as described. There are unchanged findings at L3-4 and L4-5 Patient was referred back to pain management last year but unclear why she was never scheduled or seen Continue Gabapentin 300 mg TID and Tizanidine 4 mg TID PRN (3) Left lumbosacral radiculopathy: Code(s): M54.17 - Radiculopathy, lumbosacral region Category: Medical Plan: Repeat lumbar spine MRI done last year on 05/27/2024 revealed findings of [id number] lumbar spondylosis, most significant at L5-S1, where there has been mild worsening of findings as described. There are unchanged findings at L3-4 and L4-5 Will consider referring her back again to pain management or to neurosurgery for further evaluation and management, especially if her low back pain continues to progress (4) Pure hypercholesterolemia: Code(s): E78.00 - Pure hypercholesterolemia, unspecified Category: Medical Plan: Reinforced low cholesterol diet Will recheck her fasting lipids and labs ASHELY for follow up She was sent for labs last year but she did not get them done - have advised patient to get her labs done ASHELY as she has not gotten any labs done at all since 2019 (5) Elevated LFTs: Code(s): R79.89 - Other specified abnormal findings of blood chemistry Category: Medical Plan: There were most likely due to hepatosteatosis (fatty liver) and should improve with diet and weight loss Will recheck her LFTs ASHELY for follow up (6) Allergic rhinitis: Code(s): J30.9 - Allergic rhinitis, unspecified Category: Medical Qualifiers: Allergic rhinitis trigger: unspecified Allergic rhinitis seasonality: unspecified Qualified Code(s): J30.9 - Allergic rhinitis, unspecified Plan: Continue Fexofenadine 180 mg QD PRN and Fluticasone 50 mcg nasal spray QD PRN (7) Primary insomnia: Code(s): F51.01 - Primary insomnia Category: Medical Plan: Sleep hygiene reinforced Continue Hydroxyzine 25 mg Q HS PRN (8) Anxiety: Code(s): F41.9 - Anxiety disorder, unspecified Category: Medical Plan: She was previously on Buspirone 15 mg BID and Sertraline 50 mg QD but for unclear reasons, she has been off her Rx for about year now (9) Depression: Code(s): F32.9 - Major depressive disorder, single episode, unspecified Category: Medical Qualifiers: Depression Type: major depressive disorder Major depression recurrence: recurrent Active/Remission status: currently active Major depression episode severity: unspecified Qualified Code(s): F33.9 - Major depressive disorder, recurrent, unspecified Plan: Patient used to go to [facility] but has not been to see them in a while She has been advised that she should try to get back in to see them ASHELY - referral done She used to take Sertraline but unclear why this was discontinued - patient was under the impression that we stopped her medication about a year ago Have advised patient that we did not stop her medication and she asked to try going back on it, which we agreed to Will start her back on Sertraline 50 mg QD (10) Obesity (BMI 30-39.9): Code(s): E66.9 - Obesity, unspecified Category: Medical Plan: Reinforced diet; exercise and weight loss have proven difficult for patient due to her low back pain Have advised her that she should avoid any heavy weight-lifting or treadmill exercises as these are going to aggravate her low back pain Alternatively, she can try an exercise bike or low impact elliptical exercises as tolerated Plan Follow up in 3 months Orders: Orders [facility]. Panel Fast 01/17/25 E78.00 - Pure hypercholesterolemia, unspecified, Z00.00 - Encounter for general adult medical examination without abnormal findings Vitamin B12 and Folate 01/17/25 E53.8 - Deficiency of other specified B group vitamins, Z00.00 - Encounter for general adult medical examination without abnormal findings UA CC w/rflx Micro + Cult 01/17/25 R30.0 - Dysuria, Z00.00 - Encounter for general adult medical examination without abnormal findings Complete Blood Count Auto Diff 01/17/25 D64.9 - Anemia, unspecified, Z00.00 - Encounter for general adult medical examination without abnormal findings Lipid Panel 01/17/25 E78.00 - Pure hypercholesterolemia, unspecified, Z00.00 - Encounter for general adult medical examination without abnormal findings Hemoglobin A1c 01/17/25 R73.9 - Hyperglycemia, unspecified, Z00.00 - Encounter for general adult medical examination without abnormal findings Vitamin D 25-OH Total 01/17/25 E55.9 - Vitamin D deficiency, unspecified, Z00.00 - Encounter for general adult medical examination without abnormal findings TSH reflex Free T4 01/17/25 E78.00 - Pure hypercholesterolemia, unspecified, Z00.00 - Encounter for general adult medical examination without abnormal findings Referrals Psychiatry Referral F33.9 - Major depressive disorder, recurrent, unspecified, F41.9 - Anxiety disorder, unspecified Medications: Changed From sertraline 50 mg PO DAILY 90 tabs 1RF To sertraline 50 mg PO DAILY 90 days 90 tabs 1RF
== END 2025-01-17 13:42 | disposition home or self-care (01) ==
LOC: HO.HMCH 12:55
PROVIDERS: PCP Internal Medicine; Visit Provider Internal Medicine
DX: Z00.00 Encounter for general adult medical examination without abnormal findings (principal); M51.362 Other intervertebral disc degeneration, lumbar region with discogenic back pain and lower extremity pain; E66.9 Obesity, unspecified; Z68.34 Body mass index [BMI] 34.0-34.9, adult; M54.17 Radiculopathy, lumbosacral region; E78.00 Pure hypercholesterolemia, unspecified; R79.89 Other specified abnormal findings of blood chemistry; J30.9 Allergic rhinitis, unspecified; F51.01 Primary insomnia; F41.9 Anxiety disorder, unspecified; F33.9 Major depressive disorder, recurrent, unspecified

== ENCOUNTER → 2025-01-17 12:54 | Outpatient (BNVA) | payer OTHER, SELFPAY | PROVIDERS: PCP Internal Medicine; Visit Provider Internal Medicine | DX: Z00.00 Encounter for general adult medical examination without abnormal findings (principal); M51.362 Other intervertebral disc degeneration, lumbar region with discogenic back pain and lower extremity pain; M54.17 Radiculopathy, lumbosacral region; E78.00 Pure hypercholesterolemia, unspecified; R79.89 Other specified abnormal findings of blood chemistry; J30.9 Allergic rhinitis, unspecified; F51.01 Primary insomnia; F41.9 Anxiety disorder, unspecified; F33.9 Major depressive disorder, recurrent, unspecified; E66.9 Obesity, unspecified; Z68.34 Body mass index [BMI] 34.0-34.9, adult | CPT/HCPCS: 96127; 99396 ==

== ENCOUNTER 2025-04-01 14:46 | Emergency (ER) | payer OTHER, SELFPAY ==
[2025-04-01 14:56] VITALS: BP 144/77; PULSE 96; RESP 16; TEMP 36.9; O2SAT 94; BMI 34.1
--- NOTE | 2025-04-01 14:59 | ED_ITS ---
HPI - Female Genitourinary General Chief complaint: Urogenital-Female Stated complaint: uti Time Seen by Provider: 04/01/25 16:40 Source: patient and family () Mode of arrival: ambulatory Limitations: no limitations History of Present Illness ED Provider: LION GOMES PA-C HPI Narrative: 40 year old female presents to the ED for evaluation of burning with urination and urinary frequency x4 days. She has been using azo at home without relief. Denies any hematuria. Denies chills, nausea or vomiting, flank pain, abdominal pain. Reports low-grade fever 4 days ago. Related Data Previous Rx's ?Medication ?Instructions ?Recorded gabapentin 300 mg capsule 300 mg PO TID 30 days #90 ca ps 01/17/24 tizanidine 4 mg tablet 4 mg PO TID PRN low back eran n 30 12/01/24 days #90 tabs fluticasone propionate 50 1 spray intranasal DAILY 90 days 12/13/24 mcg/actuation nasal #15.8 mL spray,suspension benzonatate 100 mg capsule 100 mg PO Q6H PRN cough #20 caps 01/07/25 ibuprofen 800 mg tablet 800 mg PO Q8H PRN fever #20 tabs 01/07/25 sertraline 50 mg tablet 50 mg PO DAILY 90 days #90 t abs 01/17/25 cefuroxime axetil 250 mg tablet 250 mg PO BID 7 days # 14 tabs 04/01/25 phenazopyridine 200 mg tablet 200 mg PO Q8H PRN bladde r spasms 6 04/01/25 (Pyridium) doses #20 tabs Allergies Allergy/AdvReac Type Severity Reaction Status Date / Time hazelnut Allergy Severe SWELLING Verified 04/01/25 14:57 watermelon Allergy Intermediate itchy Verified 04/01/25 14:57 throat, hoarseness FRUIT, SKINS Allergy Intermediate ITCHY Uncoded 04/01/25 14:57 THROAT salsa dip AdvReac Severe mouth Uncoded 04/01/25 14:57 swelling Review of Systems 2 Review of Systems: Constitutional: No fever, chills, fatigue, night sweats, weight changes ENT/Mouth: No ear pain, hearing loss, nasal congestion, sinus pain, rhinorrhea, sore throat Eyes: No eye pain, swelling, redness, vision changes, discharge Cardio: No chest pain, palpitations, CHAVEZ, orthopnea, peripheral edema Pulm: No SOB, cough, sputum, wheezing, dyspnea, hemoptysis GI: No nausea, vomiting, hematemesis, abdominal pain, diarrhea, constipation, hematochezia, melena : No irregular bleeding, urgency, hesitancy, hematuria, flank pain, urinary flow changes, urinary incontinence or retention, +dysuria, +urinary freq MSK: No back pain, neck pain, joint pain, myalgias Skin: No lesions, rashes Neuro: No weakness, numbness, paresthesias, LOC, dizziness, headache Psych: No anxiety/panic, depression, SI/HI, AH/VH All other systems reviewed and are negative. [facility] Past Medical History Attestation statement: The following information was validated with the patient. Source: old records reviewed and nursing notes reviewed Medical History History of infertility Paresthesia Allergic rhinitis Obesity (BMI 30-39.9) Depression Primary insomnia Anxiety Elevated LFTs Pure hypercholesterolemia Lumbar degenerative disc disease Surgical History History of arthroscopy of left shoulder History of ectopic Family History Family History Father No problems noted. Mother No problems noted. Maternal Grandmother Stroke Diabetes Hypertension Paternal Aunt Liver problem Alcoholism Family/Other Substance use disorder Social History Social History Housing: Apartment Alcohol intake: current Alcohol intake frequency: holidays/special occasions only Patient Tobacco Use Status: Former Tobacco user Tobacco use type: Cigarette e-Cigarette/Vaping Use: Never Used Second Hand Smoke Exposure: No service: No Current occupational status: unemployed Current occupational exposures/hazards: No Sexual orientation: Straight/Heterosexual Gender identity: Female Cognitive needs: No Hearing needs: No Vision needs: No Physical Exam 2 Vital Signs: Vital Signs: Last Vital Signs Temp 97.5 F 04/01/25 16:47 Pulse 85 04/01/25 16:47 Resp 16 04/01/25 16:47 BP 147/91 H 04/01/25 16:47 Pulse Ox 98 04/01/25 16:47 O2 Del Method Room Air 04/01/25 16:47 BMI result Body Mass Index 34.1 Hypertensive, vitals otherwise WNL General: Well appearing, in no acute distress. Skin: Warm, dry, intact. No rashes or lesions. Head: Normocephalic, atraumatic. EENT: Hearing is intact b/l. Conjunctiva clear. Sclera is anicteric. PERRLA. EOM intact. Moist mucous membranes.? Neck: Supple without LAD Cardiac: Chest wall symmetric. RRR Lungs: Normal respiratory effort without accessory muscle use. CTA bilaterally. Abdomen: Soft, non-tender, non-distended. No rebound tenderness or guarding. Positive BS x4. no cvat. Back: No midline spinous or paraspinal tenderness. No step off deformity. Ext: Upper and lower extremities atraumatic, without tenderness, deformity, swelling or erythema Neuro: AOx3. Normal speech. Ambulating with steady gait. Course Course Course Narrative: CBC without leukocytosis or left shift. No anemia. H&H stable. Chemistry without acute electrolyte abnormality requiring intervention. No CANDACE. Random glucose 130. Liver function at baseline. Urine infected. Urine negative. Discussed results with patient. Will start her on Ceftin for UTI. Pyridium sent to pharmacy for dysuria. No imaging warranted at this time. Patient has remained stable throughout ED visit today. Discussed worrisome signs and symptoms and when to return to the ED. All questions answered at this time. Patient is agreeable with disposition and stable for discharge. Medical Decision Making Medical Decision Making [facility] Narrative: 40 year old female presents to the ED for evaluation of burning with urination and urinary frequency x4 days. Patient is hypertensive, afebrile. She is well- appearing in no acute distress. Abdominal exam benign. No CVAT. Differential diagnosis includes urinary tract infection, anemia, electrolyte abnormality. Low suspicion for renal colic, nephrolithiasis, pyelonephritis. Plan for labs, UA, disposition Differential Diagnosis Differential Diagnoses: The differential diagnosis associated with the presentation includes As above Admission/Observation Not indicated Lab Data [facility] Lab Attestation statement: I reviewed the patient's lab results. As above 04/01/25 15:07 04/01/25 15:07 Labs: Lab Results 04/01/25 04/01/25 Range/Units 15:07 15:15 WBC 8.7 (4.8-10.8) X10*3/uL RBC 4.17 L (4.20-5.50) X10*6/uL Hgb 13.3 (12.0-16.0) g/dl Hct 38.4 (37.0-47.0) % MCV 92.1 (80.0-98.0) fL MCH 31.9 (27.0-33.0) pg MCHC 34.6 (31.0-35.0) g/dl RDW 11.8 (11.0-16.0) % Plt Count 292 (160-400) X10*3/uL MPV 9.2 L (9.4-12.3) fL Immature Gran % (Auto) 0.1 (0.0-0.4) % Neut % (Auto) 63.6 (45-73) % Lymph % (Auto) 29.1 (20-40) % [place] % (Auto) 5.8 (2-11) % Eos % (Auto) 1.1 (0-4) % Baso % (Auto) 0.3 (0-2) % Lymph # (Auto) 2.5 (1.2-4.9) X10*3/uL [place] # (Auto) 0.5 (0.1-1.2) X10*3/uL Eos # (Auto) 0.1 (0.0-0.4) X10*3/uL Baso # (Auto) 0.0 (0.0-0.2) X10*3/uL Abs Immat Gran (auto) 0.01 (0.00-0.03) X10*3/uL Absolute Neuts (auto) 5.5 (2.0-8.3) x10*3/uL Absolute Nucleated RBC 0.000 (0.0-0.012) X10*3/uL Nucleated RBC % (auto) 0.0 (0.0-0.2) /100WBC Sodium 138 (135-145) mmol/L Potassium 3.7 (3.3-5.1) mmol/L Chloride 102 (96-108) mmol/L Carbon Dioxide 28 (22-29) mmol/L Anion Gap 12 (12-20) BUN 8 L (9-16) mg/dL Creatinine 0.70 (0.5-1.4) mg/dL Estim Creat Clear Calc 122.2 Estimated GFR > 60 Random Glucose 130 H (60-115) mg/dL Calcium 9.2 (8.4-10.2) mg/dL Total Bilirubin 0.6 (0.0-1.0) mg/dL AST 66 H (5-31) U/L ALT 124 H (0-31) U/L Alkaline Phosphatase 84 (39-117) U/L Total Protein 7.6 (6.5-8.0) g/dL Albumin 4.2 (3.5-5.0) g/dL Urine Color Dark Yellow Urine Appearance Clear Urine pH 6.0 (5.0-9.0) Ur Specific [place] 1.010 (1.005-1.025) Urine Protein Negative (Neg-Trace) mg/dL Urine Glucose (UA) Negative (Negative) mg/dL Urine Ketones Negative (Negative) mg/dL Urine Blood Negative (Negative) Urine Nitrite Positive H (Negative) Ur Leukocyte Esterase Large (3+) H (Negative) Urine RBC 0-2 (0-2) /HPF Urine WBC 6-10 (0-5) /HPF Ur Squamous Epith Cells 3-5 (0-2) /HPF Urine Bacteria Trace (None Seen) Hyaline Casts 0-2 (0-2) /LPF Urine Test NEGATIVE (NEGATIVE) Independent Historian Clinical information obtained from an independent historian. History obtained from or confirmed by: Spouse () Prescription Management I considered prescription management with: Antibiotic (ceftin) Social Determinants Patient?s care significantly limited by Social Determinants of Health including: Other Social Determinant of Health Critical Care Time Critical Care Time Critical Care Time: No Discharge Plan Discharge Clinical Impression: Urinary tract infection Patient Disposition: Home, Self-Care Instructions: Urinary Tract Infection in Women (ED) Additional Instructions: Your urine today is positive for infection. Ceftin is an antibiotic that has been sent to your pharmacy. Take this as prescribed and do not miss any doses. You must complete the entire course of antibiotics. If you do not, there is a risk of the infection coming back or worsening. Follow up with your primary care provider as needed. If you develop a fever or new/ worsening symptoms call 911 or come back to the ER for further evaluation. Prescriptions: New cefuroxime axetil 250 mg tablet 250 mg PO BID 7 Days Qty: 14 0RF phenazopyridine [Pyridium] 200 mg tablet 200 mg PO Q8H PRN (Reason: bladder spasms) Qty: 20 0RF No Action tizanidine 4 mg tablet 4 mg PO TID PRN (Reason: low back pain) 30 Days Qty: 90 0RF fluticasone propionate 50 mcg/actuation spray,suspension 1 spray intranasal DAILY 90 Days Qty: 15.8 3RF ibuprofen 800 mg tablet 800 mg PO Q8H PRN (Reason: fever) Qty: 20 0RF benzonatate 100 mg capsule 100 mg PO Q6H PRN (Reason: cough) Qty: 20 0RF gabapentin 300 mg capsule 300 mg PO TID 30 Days Qty: 90 2RF sertraline 50 mg tablet 50 mg PO DAILY 90 Days Qty: 90 1RF Referrals: hBavik Le MD [Primary Care Provider, Internal Medicine] Stand Alone Forms: Work/School Release Interventions: ED Discharge Assessment Last Done: 04/01/25 16:47 Print Language: Nepali
[2025-04-01 15:18] LABS: MANUAL DIFF FLAG NO
[2025-04-01 15:20] LABS: Hematocrit 38.4 % (37.0-47.0); Hemoglobin 13.3 g/dl (12.0-16.0); Imm Gran Abs Auto 0.01 X10*3/uL (0.00-0.03); Imm Gran Pct Auto 0.1 % (0.0-0.4); Lymphocytes Absolute Auto 2.5 X10*3/uL (1.2-4.9); Mean Corpuscular HGB Conc 34.6 g/dl (31.0-35.0); Mean Corpuscular Hemoglobin 31.9 pg (27.0-33.0); Mean Corpuscular Volume 92.1 fL (80.0-98.0); NRBC Abs Auto 0.000 X10*3/uL (0.0-0.012); NRBC Pct Auto 0.0 /100WBC (0.0-0.2); Platelet Count 292 X10*3/uL (160-400); Red Blood Count 4.17 X10*6/uL (4.20-5.50); White Blood Count 8.7 X10*3/uL (4.8-10.8)
[2025-04-01 15:22] LABS: Appearance Urine Clear; Glucose Urine UA Negative (Negative); PH 6.0 (5.0-9.0); Specific Gravity - Urine 1.010 (1.005-1.025); UMIC TRIGGER UACC YES
[2025-04-01 15:23] LABS: UPreg QC Valid YES
[2025-04-01 15:34] LABS: Alanine Aminotransferase 124 U/L (0-31); Albumin Level 4.2 g/dL (3.5-5.0); Alkaline Phosphatase 84 U/L (39-117); Anion Gap 12 (12-20); Aspartate Amino Transferase 66 U/L (5-31); Blood Urea Nitrogen 8 mg/dL (9-16); Calcium 9.2 mg/dL (8.4-10.2); Carbon Dioxide 28 mmol/L (22-29); Chloride 102 mmol/L (96-108); Creatinine Clr Calc Pharmacy 122.2; Estimated Glomerular Filt Rate > 60; Potassium 3.7 mmol/L (3.3-5.1); Sodium 138 mmol/L (135-145); Total Protein 7.6 g/dL (6.5-8.0)
[2025-04-01 15:35] LABS: UACC Culture Trigger YES
[2025-04-01 16:46] VITALS: BP 147/91; PULSE 85; RESP 16; TEMP 36.4; O2SAT 98
[2025-04-01 16:47] VITALS: BP 147/91; PULSE 85; RESP 16; TEMP 36.4; O2SAT 98
== END 2025-04-01 16:53 | disposition home or self-care (01) ==
LOC: HO.ED 16:52
PROVIDERS: Physician Assistant Medical; Emergency Provider Emergency Medicine Emergency Medical Services; PCP Internal Medicine
DX: N39.0 Urinary tract infection, site not specified (principal); R35.0 Frequency of micturition; R30.9 Painful micturition, unspecified
CPT/HCPCS: 36415; 80053; 81001; 81025; 85025; 87086; 99282; 99283